=== PATIENT | male | born 1995 | race Two or more races ===

== ENCOUNTER 2021-07-31 12:33 | Emergency (ER) | payer OTHER, SELFPAY ==
[2021-07-31 12:50] VITALS: PULSE 72; RESP 18; TEMP 36.6; O2SAT 100
[2021-07-31] MEDS: HYDROcodone/acetaminophen (*CRX) 5-325 MG TABLET 1 TAB PO (13:13)
[2021-07-31] MEDS: SILVER SULFADIAZINE 1% CR 50 GM JAR (*BKC) 1 APPLIC TOPICAL (13:32)
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
[2021-07-31 14:09] VITALS: BP 131/85; PULSE 73; RESP 16; TEMP 36.9; O2SAT 98
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
== END 2021-07-31 14:21 | disposition home or self-care (01) ==
PROVIDERS: Emergency Provider Emergency Medicine
DX: T23.661A Corrosion of second degree back of right hand, initial encounter (principal); T32.0 Corrosions involving less than 10% of body surface
CPT/HCPCS: 16020; 99283; A9270